=== PATIENT | female | born 1995 | race African-American/Black ===

== ENCOUNTER 2019-03-10 23:53 | Emergency (ER) | payer OTHER ==
[~2019-03-10] VITALS: Ht 162.6 cm; Wt 53.6 kg
[2019-03-10 23:54] VITALS: BP 133/87
[2019-03-10] MEDS ORDERED: IBUP-1022 PO (23:57)
[2019-03-11] MEDS ORDERED: BUPIVACAINE LIPOSOME/PF 1.3% 20ML VIAL (13.3MG/ML)(EXPAREL)(C9290 PER1MG) INFIL ONE (01:30)
== END 2019-03-11 02:10 | disposition home or self-care (01) ==
LOC: M ED 23:53
DX: K08.89 Other specified disorders of teeth and supporting structures (principal)
CPT/HCPCS: 64400; 99283; C9290

== ENCOUNTER → 2021-03-09 | Outpatient (CLI) | payer OTHER ==
[~2021-03-09] MED LIST: IBUP-1022 PO
--- NOTE | 2021-03-09 15:12 | PFTRPT ---
Height: 64.00 Inches Weight: 118.00 Lbs BSA: 1.56 Diagnosis: SOB DATE: 03/09/2021 ORDERING PHYSICIAN: Dr. Roc Brown Pre and post bronchodilator studies have excellent technical quality. Forced vital capacity is normal. FEV1 is in proportion. Obstructive index is therefore normal. Expiratory limit of the flow-volume loop is normal. No significant bronchodilator response is identified. Total lung capacity is normal. Residual volume is generally in proportion. Diffusing capacity is normal. No hemoglobin available for correction. Airway resistance and conductance are normal. IMPRESSION: Essentially normal study. MTDD
== END ==
LOC: M CARPUL 14:42
PROVIDERS: ATTEND Surgery
DX: R06.02 Shortness of breath (principal)